=== PATIENT | female | born 1990 | race Caucasian/White ===

== ENCOUNTER → 2017-01-21 | Outpatient (CLI) | payer MEDICAID ==
[2015-04-01 18:34] VITALS: BP 124/86
--- NOTE | 2017-01-21 12:26 | FMS ---
Indication pain. No known injury. AP and lateral views of the lumbar spine were obtained as well as a coned view targeted to the lumbosacral junction. Vertebral height alignment and disc spaces are unremarkable. Acute finding is not seen. Significant degenerative changes are not apparent on plain films. IUD is noted. IMPRESSION: Unremarkable plain films of the lumbar spine
--- NOTE | 2017-01-22 17:07 | RAD ---
Indication pain. An AP view the pelvis was obtained as well as targeted AP and frog leg views of the right hip. No bony abnormality is seen. IUD is noted. MTDD
== END | disposition home or self-care (01) ==
LOC: FMSRAD 11:18
PROVIDERS: ATTEND Nurse Practitioner Occupational Health
DX: M54.16 Radiculopathy, lumbar region (principal); M54.31 Sciatica, right side
CPT/HCPCS: 73502

== ENCOUNTER → 2019-02-13 | Outpatient (CLI) | payer OTHER ==
[2015-04-01 18:34] VITALS: BP 124/86
--- NOTE | 2019-02-13 12:24 | KCIC ---
MR of the right shoulder HISTORY: Right shoulder pain. Injury 3 months ago. TECHNIQUE: Routine multiplanar sequences are obtained. FINDINGS: The acromioclavicular joint is intact. Trace subdeltoid bursal effusion. Abnormal signal within the rotator cuff of the supraspinatus and infraspinatus tendons, particularly at the articular side with ill-definition of the surface. Compatible with tendinosis. There is a suspected component of articular side tearing, difficult to assess depth however, and there is no actual fluid filled gap identified. No full-thickness rupture. No evidence of subscapularis tendon tear. No significant joint effusion. No acute articular cartilage defect. Incidentally noted thick cordlike middle glenohumeral ligament compatible with a normal variant. No labral detachment. Biceps tendon is intact. No bone destruction. No acute fracture. No abnormal soft tissue fluid collection. IMPRESSION: Rotator cuff cuff tendinosis. There is some degree of articular side tearing of the supraspinatus and infraspinatus tendon, but no full-thickness rupture. Electronically signed by: Giorgio Fonseca MD (02/13/2019 12:21 PM) [id number]
== END | disposition home or self-care (01) ==
LOC: KCIC MRI 09:11
PROVIDERS: ATTEND Orthopaedic Surgery Sports Medicine
DX: S46.012A Strain of muscle(s) and tendon(s) of the rotator cuff of left shoulder, initial encounter (principal); M25.411 Effusion, right shoulder; X58.XXXA Exposure to other specified factors, initial encounter; Y93.89 Activity, other specified; Y92.89 Other specified places as the place of occurrence of the external cause; Y99.8 Other external cause status
CPT/HCPCS: 73221

== ENCOUNTER → 2019-03-13 | Day surgery (SDC) | payer OTHER ==
[~2019-03-13] VITALS: Ht 157.5 cm; Wt 59.0 kg
[~2019-03-13] MED LIST: ARIP5TAB13 PO; BACL10TA PO; BUPIVACAINE MPF 0.5% 30 ML VIAL. ONE; BUPR300T3 PO; DESFLURANE 61 TO 120 MINUTES IH ONE; DEXAMETHASONE SOD PHOS 4 MG/ML VIAL ONE; DICY10CA3 PO; DOCU-109 PO; EPINEPHrine VIAL 30 MG/30 ML VIAL ONE; GLYCOPYRROLATE 1 MG/5 ML VIAL. ONE; HYDROmorphone 2 MG/ML VIAL IV PRN; IV RINGERS,LACTATED 1000ML 1,000 ML IV SCH; LAMO25TA9 PO; LIDOCAINE 1% 20 ML VIAL. ONE; LIDOCAINE 1% PF 2 ML VIAL. ID PRN; LIDOCAINE 2% PF 5 ML VIAL. ONE; MELO15TA6 PO; MIDAZOLAM HCL/PF 2 MG/2 ML VIAL. ONE; MORPHINE SULFATE 2 MG/ML VIAL. IV PRN; NEOSTIGMINE METHYLSULFATE 5 MG/5 ML SYRINGE. ONE; ONDA8TAB9 PO; ONDANSETRON PF 4 MG/2 ML VIAL. IV PRN; ONDANSETRON PF 4 MG/2 ML VIAL. ONE; OXYC1TAB15 PO; PROCHLORPERAZINE 10 MG/2 ML VIAL. IV PRN; PROPOFOL 20 ML IV ONE; ROCURONIUM 50 MG/5 ML VIAL. ONE; ROPIVacaine 0.5% PF 20 ML VIAL. ONE; SUCCINYLCHOLINE 200 MG/10 ML VIAL. ONE; fentaNYL PF VIAL 100 MCG/2 ML VIAL IV PRN; fentaNYL PF VIAL 100 MCG/2 ML VIAL ONE
--- NOTE | 2019-03-13 07:36 | DISCH ---
DISCHARGE INSTRUCTIONS Condition on Discharge Condition on Discharge: Stable Activity After Discharge Activity Instructions for Disc: Other, see below Other activity instructions: arm to remain in sling Bathing Instructions: Shower-keep dressing dry Weight Bearing Status after Di: Non weight bearing Diet after Discharge Diet after Discharge: Regular Wound Incision Care Wound/Incision Care: Ice to area for comfort, Keep wound/cast CDI, Change dressing Other wound/incision instructi: ok to change dressing after 2 days Contacting the [facility] after DC Call your doctor for: Concerns you may have Follow-Up Follow up with: Lashaun in 2 wks JING CALLE II, MD Mar 13, 2019 07:36
--- NOTE | 2019-03-13 08:58 | PDOC4 ---
Operative Note Operative Note Date of procedure: 03/13/2019 Surgeon: [facility] Provider: Arabella Hinds, certified technician specialist Preoperative diagnosis: Right shoulder rotator cuff tear Postoperative diagnosis: Same Procedure performed: Arthroscopic right shoulder rotator cuff repair Anesthesia: Gen. plus regional nerve block Findings:#1 fraying and degenerative changes at the supraspinatus #2 normal-appearing cartilage at glenohumeral joint #3 labrum intact circumferentially #4 no loose bodies #5 no pathology apparent and biceps tendon Blood loss: 10mL Components inserted: [employer] Helacoil anchor Reason for procedure: Patient is a very pleasant female who had shoulder pain and dysfunction that was interfering with her recreational activity, primarily gymnastics but also her activities of daily living. We had tried physical therapy and conservative measures, but these were unsuccessful and pain relief and allowing her to participate in the activities she wished to. Because of this, we had a discussion of the risks, benefits, and alternatives to the above surgery and she wished to proceed. Description of procedure: Patient was greeted in the preoperative holding area where the correct extremity was verified and marked. The patient was then taken back to the operative suite and antibiotics were started as they were brought back. Once in the operative room, the patient was transferred gently supine to the operating room table after successful induction of a general anesthetic after placement of a regional nerve block by the anesthesiology team. After this, she was sat up in a beachchair position maintaining her C-spine in neutral position, large pad under her legs, she was secured to the bed. We then prepped and draped her right upper extremity and shoulder girdle in our usual sterile fashion, we conducted our standard preoperative timeout. I palpated and marked surface anatomy for my planned portal sites. I then used a spinal needle to localize a posterior superior portal and incised skin in accordance with this. After this, I introduced the blunt arthroscopic trocar into the glenohumeral joint followed by the camera. I used a spinal needle to localize an anterosuperior portal and incised skin in accordance with this. I then introduced my arthroscopic probe and conducted my diagnostic arthroscopy with the above-noted findings. I then directed my attention back to therotator cuff and noted some tendinosis and articular fraying of about 4 mm at the supraspin atus and passed a PDS suture through using a spinal needle and retrieved it through the anterosuperior portal as well. After this, I repositioned the camera into the subacromial space and performed a bursectomy with combination of shaver and electrocautery device. I then identified the area of the rotator cuff forehead shuttled the PDS suture through and was easily able to violate the substance of this with a blunt trocar. I debrided the pathologic tendon and prepared my footprint. I then placed my helacoil anchor and shuttled limbs through in a simple configuration. I tied these down with arthroscopic knot- tying techniques. The tear was stable to probing and to gentle rotation of the arm. I then removed all loose bony debris and the excess arthroscopic fluid. I took my final pictures prior to this. After this, all the excess fluid and instrumentation was removed. The portals were closed with simple interrupted 3-0 nylon. Sterile dressing was applied followed by an abduction pillow sling. Patient tolerated surgery well. No complications. All counts correct �2 prior to wound closure. At the conclusion, she was laid supine and transferred gently supine to the recovery room cart and taken to the PACU in a stable and extubated condition. Postoperative plan is discharge him home, nonweightbearing for 4 weeks. We�ll get her started on physical therapy. She will follow up with me in 2 weeks, sooner should a problem arise. INDER CALLE II, MD Mar 13, 2019 08:58
[2019-03-13 09:20] VITALS: BP 111/80
== END ==
LOC: SURG 05:53
PROVIDERS: ATTEND Orthopaedic Surgery Sports Medicine
DX: M75.111 Incomplete rotator cuff tear or rupture of right shoulder, not specified as traumatic (principal); F17.210 Nicotine dependence, cigarettes, uncomplicated; F31.9 Bipolar disorder, unspecified; Z90.49 Acquired absence of other specified parts of digestive tract; Z98.890 Other specified postprocedural states
CPT/HCPCS: 29827; 81025; A7015; C1713; C1782; J0171; J0330; J0690; J1100; J2001; J2250; J2405; J2704; J2710; J2795; J3010; J3490

== ENCOUNTER → 2021-01-03 | Outpatient (CLI) | payer MEDICAID ==
[2019-03-13 09:20] VITALS: BP 111/80
[~2021-01-03] MED LIST changes: -BUPIVACAINE MPF 0.5% 30 ML VIAL. ONE; -DESFLURANE 61 TO 120 MINUTES IH ONE; -DEXAMETHASONE SOD PHOS 4 MG/ML VIAL ONE; -EPINEPHrine VIAL 30 MG/30 ML VIAL ONE; -GLYCOPYRROLATE 1 MG/5 ML VIAL. ONE; -HYDROmorphone 2 MG/ML VIAL IV PRN; -IV RINGERS,LACTATED 1000ML 1,000 ML IV SCH; -LIDOCAINE 1% 20 ML VIAL. ONE; -LIDOCAINE 1% PF 2 ML VIAL. ID PRN; -LIDOCAINE 2% PF 5 ML VIAL. ONE; -MIDAZOLAM HCL/PF 2 MG/2 ML VIAL. ONE; -MORPHINE SULFATE 2 MG/ML VIAL. IV PRN; -NEOSTIGMINE METHYLSULFATE 5 MG/5 ML SYRINGE. ONE; -ONDANSETRON PF 4 MG/2 ML VIAL. IV PRN; -ONDANSETRON PF 4 MG/2 ML VIAL. ONE; -PROCHLORPERAZINE 10 MG/2 ML VIAL. IV PRN; -PROPOFOL 20 ML IV ONE; -ROCURONIUM 50 MG/5 ML VIAL. ONE; -ROPIVacaine 0.5% PF 20 ML VIAL. ONE; -SUCCINYLCHOLINE 200 MG/10 ML VIAL. ONE; -fentaNYL PF VIAL 100 MCG/2 ML VIAL IV PRN; -fentaNYL PF VIAL 100 MCG/2 ML VIAL ONE
--- NOTE | 2021-01-03 13:51 | KCIC ---
EXAM: Lumbar spine MRI without contrast. HISTORY: Back spasms. Pain. TECHNIQUE: Multiplanar, multisequence magnetic resonance imaging of the lumbar spine was performed wi thout contrast. COMPARISON: None. FINDINGS: There is mild lumbar scoliosis. There is degenerative endplate remodeling with disc space n arrowing and disc desiccation at L4-L5 and L5-S1. There is advanced endplate remodeling with associat ed marrow edema at L5-S1. There are endplate Schmorl's nodes at this level. There are few small endpl ate Schmorl's nodes at the lower thoracic and upper lumbar levels. There is no fracture or suspicious osseous lesion. The conus terminates at T12-L1. At L1-L2, L2-L3 and L3-L4, there is no stenosis. At L4-L5, there is a shallow broad-based posterior central to right paracentral disc protrusion and a nnular tear superimposed on a disc bulge and endplate remodeling. There is mild right and minimal lef t facet arthropathy. There is minimal right greater than left foraminal stenosis. There is mild centr al canal stenosis. At L5-S1, there is a disc bulge and endplate remodeling. There is mild right foraminal stenosis. IMPRESSION: 1. Degenerative change predominantly at the lower lumbar levels, described in detail above. 2. No acute osseous finding. Electronically signed by: Manjula Dorman MD (01/03/2021 1:48 PM) [id number]
== END ==
LOC: KCIC MRI 13:00
PROVIDERS: ATTEND Family Medicine
DX: M47.816 Spondylosis without myelopathy or radiculopathy, lumbar region (principal); M48.061 Spinal stenosis, lumbar region without neurogenic claudication
CPT/HCPCS: 72148